=== PATIENT | female | born 1990 | race Caucasian/White ===

== ENCOUNTER → 2024-12-17 07:50 | Outpatient (REF) | payer BC, SELFPAY | LOC: WDC 07:50 | PROVIDERS: ATTENDING PHYSICIAN Nurse Practitioner Family | DX: N63.20 Unspecified lump in the left breast, unspecified quadrant (principal); N63.21 Unspecified lump in the left breast, upper outer quadrant | CPT/HCPCS: 76642 ==

== ENCOUNTER → 2025-04-07 09:32 | Outpatient (REF) | payer BC, SELFPAY | LOC: PNTC 09:32 | PROVIDERS: ATTENDING PHYSICIAN Obstetrics & Gynecology | DX: R77.2 Abnormality of alphafetoprotein (principal) | CPT/HCPCS: 76816 ==

== ENCOUNTER → 2025-06-11 10:50 | Outpatient (REF) | payer BC, SELFPAY | LOC: PNTC 10:50 | PROVIDERS: ATTENDING PHYSICIAN Obstetrics & Gynecology | DX: O09.523 Supervision of elderly multigravida, third trimester (principal); O09.813 Supervision of pregnancy resulting from assisted reproductive technology, third trimester | CPT/HCPCS: 59025; 76815 ==

== ENCOUNTER → 2025-06-16 08:19 | Outpatient (REF) | payer BC, SELFPAY | LOC: PNTC 08:19 | PROVIDERS: ATTENDING PHYSICIAN Obstetrics & Gynecology | DX: O09.523 Supervision of elderly multigravida, third trimester (principal); O09.813 Supervision of pregnancy resulting from assisted reproductive technology, third trimester | CPT/HCPCS: 59025; 76816 ==

== ENCOUNTER → 2025-06-24 10:39 | Outpatient (REF) | payer BC, SELFPAY | LOC: PNTC 10:39 | PROVIDERS: ATTENDING PHYSICIAN Obstetrics & Gynecology | DX: O09.523 Supervision of elderly multigravida, third trimester (principal); O09.813 Supervision of pregnancy resulting from assisted reproductive technology, third trimester | CPT/HCPCS: 59025; 76815 ==

== ENCOUNTER → 2025-06-30 11:17 | Outpatient (REF) | payer BC, SELFPAY | LOC: PNTC 11:17 | PROVIDERS: ATTENDING PHYSICIAN Obstetrics & Gynecology | DX: O09.523 Supervision of elderly multigravida, third trimester (principal); O09.813 Supervision of pregnancy resulting from assisted reproductive technology, third trimester | CPT/HCPCS: 59025; 76815 ==

== ENCOUNTER 2025-07-03 17:14 | Inpatient (IN) | payer BC, SELFPAY ==
[2025-07-03 17:28] VITALS: BP 117/92; BMI 32.4
[2025-07-03 18:16] LABS: Hematocrit 30.1 % (37.0-47.0); Hemoglobin 10.5 g/dL (12.0-16.0); Mean Corp Hgb Conc. 34.9 g/dL (33.0-37.0); Mean Corpuscular Volume 90.7 fL (81.0-99.0); Nucleated Red Blood Cells % 0 %; Platelet Count 183 10^3/uL (130-400); Red Cell Dist. Width 12.8 % (11.5-14.5)
[2025-07-03] MEDS: VALTREX 500 MG PO (21:51)
[2025-07-03] MEDS: LR 1000 IV (21:54)
[2025-07-03] MEDS: PITOCIN 30 UNITS/NSS 500 ML IV (22:00)
[2025-07-03] MEDS: SUBLIMAZE 100 MCG EPIDURAL (23:38)
[2025-07-03] MEDS: FENTANYL/BUPIVACAINE 100 EPIDURAL (23:49)
[2025-07-04] MEDS: SYNTHROID 125 MCG PO (05:44)
[2025-07-04] MEDS: COLACE PO (11:32)
[2025-07-04] MEDS: PRENATAL PLUS 1 TABLET PO (17:31)
[2025-07-04] MEDS: MOTRIN 600 MG PO (17:31)
[2025-07-04] MEDS: COLACE 100 MG PO (20:06)
[2025-07-05] MEDS: MOTRIN 600 MG PO ×2 (01:03→08:05)
[2025-07-05 05:24] LABS: Hematocrit 29.9 % (37.0-47.0); Hemoglobin 9.9 g/dL (12.0-16.0)
[2025-07-05] MEDS: SYNTHROID 125 MCG PO (06:25)
[2025-07-05] MEDS: PRENATAL PLUS 1 TABLET PO (08:05)
[2025-07-05] MEDS: COLACE 100 MG PO (08:05)
[2025-07-08 11:44] LABS: Syphilis/T. pallidum Ab Reflex Negative (Negative)
== END 2025-07-05 12:30 | disposition home or self-care (01) | DRG 807 ==
LOC: LDRP 17:14
PROVIDERS: Obstetrics & Gynecology; ADMITTING PHYSICIAN Obstetrics & Gynecology
PROC: 0KQM0ZZ Repair Perineum Muscle, Open Approach (ICD-10-PCS; 2025-07-04)
PROC: 10E0XZZ Delivery of Products of Conception, External Approach (ICD-10-PCS; 2025-07-04)
DX: O48.0 Post-term pregnancy (principal); Z37.0 Single live birth; Z3A.40 40 weeks gestation of pregnancy; O70.1 Second degree perineal laceration during delivery
CPT/HCPCS: 36415; 85014; 85018; 85025; 86780; 86850; 86900; 86901; 87070